=== PATIENT | male | born 1970 | race Caucasian/White ===

== ENCOUNTER 2024-03-23 16:01 | Emergency (ER) | payer OTHER ==
[2024-03-23 17:11] LABS: BASOPHILS ABSOLUTE AUTO 0.04 K/uL (0.00-0.20); BASOPHILS PERCENT AUTO 0.5 % (0.0-1.0); EOSINOPHILS ABSOLUTE AUTO 0.17 K/uL (0.00-0.45); EOSINOPHILS PERCENT AUTO 1.9 % (0.0-6.0); HEMATOCRIT 42.5 % (42.0-52.0); HEMOGLOBIN 15.1 g/dL (14.0-18.0); IMMATURE GRAN ABSOLUTE AUTO 0.01 K/uL (0.00-0.05); IMMATURE GRAN PERCENT AUTO 0.1 % (0.0-0.4); LYMPHOCYTES ABSOLUTE AUTO 1.43 K/uL (1.00-4.80); LYMPHOCYTES PERCENT AUTO 16.1 % (24.0-44.0); MEAN CORPUSCULAR HEMOGLOBIN 30.3 pg (28.0-32.0); MEAN CORPUSCULAR HGB CONC 35.5 g/dL (32.0-36.0); MEAN CORPUSCULAR VOLUME 85.3 fL (83.0-99.0); MONOCYTES ABSOLUTE AUTO 0.75 K/uL (0.00-0.80); MONOCYTES PERCENT AUTO 8.4 % (0.0-8.0); NEUTROPHILS ABSOLUTE AUTO 6.48 K/uL (1.80-7.70); PLATELET COUNT,PLT 174 K/uL (150-400); RED BLOOD CELL COUNT 4.98 M/uL (4.52-5.90); WHITE BLOOD CELL COUNT,WBC 8.88 K/uL (3.9-11.3)
[2024-03-23] MEDS: Diphtheria,Pertussis(Acell),Tetanus Vaccine 0.5 ML Syringe IM ONE (17:13)
[2024-03-23] MEDS: Lidocaine 1% 5 ML VIAL INJECT STA (17:13)
[2024-03-23] MEDS: hydrALAZINE 20 MG/ML SDV IVPUSH STA (17:15)
[2024-03-23 17:40] LABS: ALBUMIN 3.7 g/dL (3.4-5.0); BILIRUBIN TOTAL 0.5 mg/dL (0.2-1.0); CALCIUM 8.9 mg/dL (8.5-10.1); CARBON DIOXIDE,CO2 27.6 mmol/L (21.0-32.0); CREATININE 1.1 mg/dL (0.8-1.3); EST CRCL DRUG DOSING (CG) 92.82 mL/min; PROTEIN TOTAL,TP 7.3 g/dL (6.4-8.2)
[2024-03-23] MEDS: Lisinopril 10 MG Tab PO STA (18:16)
== END 2024-03-23 18:35 | disposition home or self-care (01) ==
LOC: MW.ED 16:01
DX: S61.213A Laceration without foreign body of left middle finger without damage to nail, initial encounter (principal); I10 Essential (primary) hypertension; I44.0 Atrioventricular block, first degree; Z79.899 Other long term (current) drug therapy; Z23 Encounter for immunization; Z75.8 Other problems related to medical facilities and other health care; W26.8XXA Contact with other sharp object(s), not elsewhere classified, initial encounter
CPT/HCPCS: 12001; 36415; 80053; 84484; 85025; 90471; 90715; 93005; 96374; 99283; A9270; J0360; 93010; J3490